=== PATIENT | female | born 1955 | race Caucasian/White ===

== ENCOUNTER 2018-05-26 10:40 | Emergency (ER) | payer OTHER ==
[~2018-05-26] VITALS: Ht 170.2 cm; Wt 72.6 kg
[2018-05-26] MEDS ORDERED: LEXAPRO20 MG (11:42)
[2018-05-26] MEDS ORDERED: CLONAZEPAM1 M1 (11:42)
[2018-05-26] MEDS ORDERED: CLONAZEPAM0.5 MG (11:42)
[2018-05-26] MEDS ORDERED: SYMBICORT 16010.2 GM (11:43)
== END 2018-05-26 18:40 | disposition home or self-care (01) ==
LOC: ER 10:40
DX: K29.70 Gastritis, unspecified, without bleeding (principal)

== ENCOUNTER 2018-06-09 20:54 | Inpatient (IN) | payer OTHER ==
[~2018-06-09] VITALS: Ht 170.2 cm; Wt 72.6 kg
[~2018-06-09 20:54] MED LIST: CLONAZEPAM0.5 MG; CLONAZEPAM1 M1; LEXAPRO20 MG; SYMBICORT 16010.2 GM
[2018-06-25] MEDS ORDERED: SYMBICORT 16010.2 GM IH (10:18)
[2018-06-25] MEDS ORDERED: ZANTAC150 M3 PO (10:18)
[2018-06-25] MEDS ORDERED: INTESTINEX680 M1 PO (10:19)
== END 2018-06-25 12:54 | disposition home or self-care (01) | DRG 867 ==
LOC: ER 20:54 → SURH 06-10 10:12
PROC: 3E0F7GC Introduction of Other Therapeutic Substance into Respiratory Tract, Via Natural or Artificial Opening (ICD-10-PCS; principal; 2018-06-10)
PROC: 4A033R1 Measurement of Arterial Saturation, Peripheral, Percutaneous Approach (ICD-10-PCS; 2018-06-10)
PROC: BB24ZZZ Computerized Tomography (CT Scan) of Bilateral Lungs (ICD-10-PCS; 2018-06-10)
DX: B44.1 Other pulmonary aspergillosis (principal); J09.X1 Influenza due to identified novel influenza A virus with pneumonia; J44.1 Chronic obstructive pulmonary disease with (acute) exacerbation; J45.41 Moderate persistent asthma with (acute) exacerbation; F10.232 Alcohol dependence with withdrawal with perceptual disturbance; R09.02 Hypoxemia; K29.00 Acute gastritis without bleeding; G25.2 Other specified forms of tremor; F17.210 Nicotine dependence, cigarettes, uncomplicated; K59.09 Other constipation; M94.0 Chondrocostal junction syndrome [Tietze]; R91.8 Other nonspecific abnormal finding of lung field

== ENCOUNTER 2023-08-19 13:07 | Emergency (ER) | payer OTHER ==
[~2023-08-19] VITALS: Ht 170.2 cm; Wt 78.5 kg
[~2023-08-19 13:07] MED LIST changes: +INTESTINEX680 M1 PO; +SYMBICORT 16010.2 GM IH; +ZANTAC150 M3 PO
[2023-08-19] MEDS ORDERED: EFFEXOR XR150 MG (13:50)
[2023-08-19] MEDS ORDERED: CRESTOR10 MG (13:50)
[2023-08-19] MEDS ORDERED: FOLIC ACID20 MG (13:50)
[2023-08-19] MEDS ORDERED: WELLBUTRIN XL150 M1 (13:50)
[2023-08-19] MEDS ORDERED: DICLOFENAC SODI50 MG PO (19:32)
[2023-08-19] MEDS ORDERED: NORFLEX100MG PO (19:32)
== END 2023-08-19 19:47 ==
LOC: ER 13:07
DX: S32.030A Wedge compression fracture of third lumbar vertebra, initial encounter for closed fracture (principal); M54.9 Dorsalgia, unspecified; J43.8 Other emphysema; F32.89 Other specified depressive episodes; M43.16 Spondylolisthesis, lumbar region
CPT/HCPCS: 72100; 96372; 99284; J1885; J2360

== ENCOUNTER 2025-07-29 08:59 | Outpatient (CLI) | payer OTHER ==
[~2025-07-29 08:59] MED LIST changes: +CRESTOR10 MG; +DICLOFENAC POTA50 MG PO; +DICLOFENAC SODI50 MG PO; +EFFEXOR XR150 MG; +FOLIC ACID20 MG; +NABUMETONE750 MG PO; +NORFLEX100MG PO; +VOLTAREN ARTHRI20 GM TOP; +WELLBUTRIN XL150 M1
== END 2025-07-29 09:06 | disposition home or self-care (01) ==
LOC: MRI 08:59
PROVIDERS: ATTEND Orthopaedic Surgery
DX: M25.561 Pain in right knee (principal); M25.562 Pain in left knee; M79.671 Pain in right foot; M79.672 Pain in left foot; M23.92 Unspecified internal derangement of left knee
CPT/HCPCS: 73718

== ENCOUNTER 2025-08-15 10:59 | Outpatient (CLI) | payer OTHER | END 2025-08-15 11:01 | disposition home or self-care (01) | LOC: RAD 10:59 | PROVIDERS: ATTEND Orthopaedic Surgery | DX: M25.551 Pain in right hip (principal); M25.552 Pain in left hip; M54.50 Low back pain, unspecified ==